=== PATIENT | male | born 1995 | race Caucasian/White ===

== ENCOUNTER 2016-07-28 13:09 | Emergency (ER) | payer BC ==
[~2016-07-28 13:09] MED LIST: ABILIFY5 MG PO; CYCLOBENZAPRINE10 MG PO; HYDROXYZINE PAM25 MG PO; OXYCODONE/ACETA1 TA1 PO; [UNRECOGNIZED DRUG - OTHER] IV
--- NOTE | 2016-07-28 14:05 | ED CLINICAL REPORT ---
Clinical Report - Physicians/Mid Levels [facility] [address] [place] [address] 07/28/2016 13:12 [id number] Time Seen: 13:24 Jul 28 2016. Arrived- By private vehicle. Historian- patient. HISTORY OF PRESENT ILLNESS Chief Complaint: Injury to left forearm. The injury happened just prior to arrival. The patient sustained a direct blow and crush injury. Occurred at home. Patient is experiencing mild pain. ( 21-year-old male, while snowboarding last night, and another snowboarder went into into his left forearm. He did not fall consequently to the incident, no injury to the head or neck. I used last night. Prior fracture to his distal wrist. He reports some swelling and abrasion to the area. Patient is left-hand dominant.). REVIEW OF SYSTEMS All systems otherwise negative, except as recorded above. PAST HISTORY The patient's dominant hand is the left. SOCIAL HISTORY Smoker- current status unknown. History of drug use: marijuana. No alcohol use. ADDITIONAL NOTES The nursing notes have been reviewed. PHYSICAL EXAM Vital Signs: 07/28/2016 13:28 BP: 121/61. HR: 70. RR: 18. O2 saturation: 100%. Temp: 98.5 F. Pain level now: 6/10. Appearance: Alert. No acute distress. Head: Head atraumatic. ENT: Ears normal. Nose normal. No injury to the nose. No tonsillar exudate. Neck: Normal inspection. Neck supple. CVS: Normal heart rate and rhythm. Heart sounds normal. Respiratory: No respiratory distress. Chest nontender. No decreased air movement. Skin: Skin warm. Normal skin color. (lateral left forearm abrasion). Extremities: Upper extremity soft tissue tenderness present. No signs of infection present in the upper extremities. Left elbow. No tenderness or swelling. No limitation in ROM. Left forearm. (radial abrasion/ swelling/ tendernss). Left wrist. Neurovascular intact distally. No tenderness or laceration. No limitation in ROM. Neuro, Vascular and Tendons: Vascular status intact. No sensory deficit. Motor intact. Neuro: Oriented X 3. LABS, X-RAYS, AND EKG Lt Forearm X-ray: (neg for any acute fx IMPRESSION: 1. Normal left forearm. Electronically Final signed by:John Toledo MD 07/28/2016 2:42:47 PM). The X-rays were independently viewed by me. PROGRESS AND PROCEDURES PROCEDURES (adam wrap). Course of Care: no elbow/ wrist pain. Full rom. No direct fall/ trauma. NO underyling signs of infectious process. Small abrasion noted with lateral side. Full rom at elbow/ wrist. Patient is with no fx on xr. Stable. No other injury and no fall. Patient is stable. Symptoms better. Patient/family counseled. Disposition: Discharged. CLINICAL IMPRESSION Contusion to the left forearm. INSTRUCTIONS Apply ice. Elevate affected areas above chest level. Protect wound and keep wound area clean. Apply bacitracin twice daily. OTC Medications: Acetaminophen (available over the counter): take according to label instructions. Motrin (available over the counter): take according to label instructions. Follow-up: Follow up with your doctor in three days. (Electronically signed by Janice Ortiz P.A.-C 07/28/2016 15:04)
--- NOTE | 2016-07-28 14:05 | ED ORDER SUMMARY ---
..... Patient: ADDIE ANDREWS OrderSheet [facility] VisitID: [id number] [place] [address] 21y, M Registration Date/Time: 07/28/2016 ORDER SHEET Weight: 64.8 kg (measured) Allergies: No Known Drug Allergy GENERAL ORDERS: Forearm Left Urgent (13:35 07/28/2016 Surya Sanchez) ([facility] 13:35 [facility]) Ryan Wrap (LEFT FOREARM) (14:07 07/28/2016 Surya Sanchez) MEDICATION ORDERS: IV FLUIDS: ORDER SHEET NOTES: [Electronically signed by Janice Ortiz P.A.-C (15:04 07/28/2016)] [Electronically signed by Mary Ball R.N. (10:28 07/30/2016)] [Electronically locked/signed by Mary Ball R.N. (10:07/30/2016)]
--- NOTE | 2016-07-28 14:05 | ED NURSING NOTES ---
Clinical Report - Nurses [facility] [place] [address] 07/28/2016 13:12 Patient: ADDIE ANDREWS TRIAGE Triage time 13:22. Acuity: LEVEL 5. Chief Complaint: INJURY TO LEFT ELBOW. INJURY TO THE LEFT FOREARM. Alert. --13:26 Faith Moore R.N. 13:28 07/28/16. BP: 121/61. HR: 70. RR: 18. O2 saturation: 100%. Temp: 98.5 F. Pain level now: 12/14. --13:30 Faith Moore R.N. Weight: 64.8 kg measured. Height/Length: 69 inches Per Patient. BMI: 21.1. Growth Chart Percentile: Weight: 29%. Height/Length: 40.9%. --13:30 Faith Moore R.N. Medications Cerdelga Oral. --13:41 Faith Moore R.N. The following entry was struck by Faith Moore R.N., 13:41 (07/28/16) Reason - other. <<STRICKEN ENTRY-- V-priv. --13:26 Faith Moore R.N. --END STRIKE>>. Allergies No Known Drug Allergy. --13:26 Faith Moore R.N. History Arrived by private vehicle. Historian: patient. Accompanied by mother. Primary physician (none). ( Pt was snowboarding, another snowboarder ran over pt's left arm). This occurred last night. --13:26 Faith Moore R.N. 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 PAST MEDICAL HX: Immunizations: up-to-date. SOCIAL HX: Light tobacco smoker (cigarette)- less than 1/2 a pack per day. History of drug use: marijuana. No alcohol use. --13:28 Faith Moore R.N. PROBLEMS: Lower Extremity Pain. Tibia Fracture. Concussion. Contusion. Platelet disorder. Fractured Metacarpal. Sprain. Gaucher Disease. Fall. Clavicle Fracture. --13:25 Faith Moore R.N. ADDITIONAL SURGERIES: Hernia Repair. Umbilical Hernia Repair. --13: Faith Moore R.N. Interventions ID band on patient. To room. --13: Faith Moore R.N. PHYSICAL ASSESSMENT 13:07/28/16. EXTREMITIES: Left forearm: tenderness and superficial abrasion. --13: Faith Moore R.N. NURSING PROGRESS NOTES 13:07/28/16. Patient identifiers checked. Call light placed in reach. Bed placed in lowest position. Brakes of bed on. Patient ready for evaluation- chart flagged. --13: Faith Moore R.N. 14:07/28/16. Applied dressing consisting of gauze, following the application of antibiotic ointment (bacitracin). Secured with tape and adam bandage. --14: Faith Moore R.N. DISPOSITION / DISCHARGE Departure time: 1406. Condition at departure: unchanged. No learning barriers present. Discharge instructions provided and reviewed with the patient and family. Reviewed referral to family practice for followup. Patient and family verbalized understanding. Written instructions provided. The patient was discharged home and accompanied by family. He left the Emergency Department ambulatory and via private vehicle. --14:10 Faith Moore R.N. 14:09 07/28/16. HR: 70. RR: 18. Pain level now: 09/13. --14:10 Faith Moore R.N. Locked/Released at 07/30/2016 10:28 by Mary Ball R.N.
--- NOTE | 2016-07-28 14:05 | ED CLINICAL REPORT ---
Clinical Report - Physicians/Mid Levels [facility] [address] [place] [address] 07/28/2016 13:12 [id number] Time Seen: 13:24 Jul 28 2016. Arrived- By private vehicle. Historian- patient. HISTORY OF PRESENT ILLNESS Chief Complaint: Injury to left forearm. The injury happened just prior to arrival. The patient sustained a direct blow and crush injury. Occurred at home. Patient is experiencing mild pain. ( 21-year-old male, while snowboarding last night, and another snowboarder went into into his left forearm. He did not fall consequently to the incident, no injury to the head or neck. I used last night. Prior fracture to his distal wrist. He reports some swelling and abrasion to the area. Patient is left-hand dominant.). REVIEW OF SYSTEMS All systems otherwise negative, except as recorded above. PAST HISTORY The patient's dominant hand is the left. SOCIAL HISTORY Smoker- current status unknown. History of drug use: marijuana. No alcohol use. ADDITIONAL NOTES The nursing notes have been reviewed. PHYSICAL EXAM Vital Signs: 07/28/2016 13:28 BP: 121/61. HR: 70. RR: 18. O2 saturation: 100%. Temp: 98.5 F. Pain level now: 6/10. Appearance: Alert. No acute distress. Head: Head atraumatic. ENT: Ears normal. Nose normal. No injury to the nose. No tonsillar exudate. Neck: Normal inspection. Neck supple. CVS: Normal heart rate and rhythm. Heart sounds normal. Respiratory: No respiratory distress. Chest nontender. No decreased air movement. Skin: Skin warm. Normal skin color. (lateral left forearm abrasion). Extremities: Upper extremity soft tissue tenderness present. No signs of infection present in the upper extremities. Left elbow. No tenderness or swelling. No limitation in ROM. Left forearm. (radial abrasion/ swelling/ tendernss). Left wrist. Neurovascular intact distally. No tenderness or laceration. No limitation in ROM. Neuro, Vascular and Tendons: Vascular status intact. No sensory deficit. Motor intact. Neuro: Oriented X 3. LABS, X-RAYS, AND EKG Lt Forearm X-ray: (neg for any acute fx IMPRESSION: 1. Normal left forearm. Electronically Final signed by:John Toledo MD 07/28/2016 2:42:47 PM). The X-rays were independently viewed by me. PROGRESS AND PROCEDURES PROCEDURES (adam wrap). Course of Care: no elbow/ wrist pain. Full rom. No direct fall/ trauma. NO underyling signs of infectious process. Small abrasion noted with lateral side. Full rom at elbow/ wrist. Patient is with no fx on xr. Stable. No other injury and no fall. Patient is stable. Symptoms better. Patient/family counseled. Disposition: Discharged. CLINICAL IMPRESSION Contusion to the left forearm. INSTRUCTIONS Apply ice. Elevate affected areas above chest level. Protect wound and keep wound area clean. Apply bacitracin twice daily. OTC Medications: Acetaminophen (available over the counter): take according to label instructions. Motrin (available over the counter): take according to label instructions. Follow-up: Follow up with your doctor in three days. (Electronically signed by Janice Ortiz P.A.-C 07/28/2016 15:04)
--- NOTE | 2016-07-28 14:05 | ED ORDER SUMMARY ---
..... Patient: ADDIE ANDREWS OrderSheet [facility] VisitID: [id number] [place] [address] 21y, M Registration Date/Time: 07/28/2016 ORDER SHEET Weight: 64.8 kg (measured) Allergies: No Known Drug Allergy GENERAL ORDERS: Forearm Left Urgent (13:35 07/28/2016 Surya Sanchez) ([facility] 13:35 [facility]) Ryan Wrap (LEFT FOREARM) (14:07 07/28/2016 Surya Sanchez) MEDICATION ORDERS: IV FLUIDS: ORDER SHEET NOTES: [Electronically signed by Janice Ortiz P.A.-C (15:04 07/28/2016)] [Electronically signed by Mary Ball R.N. (10:28 07/30/2016)] [Electronically locked/signed by Mary Ball R.N. (10:07/30/2016)]
--- NOTE | 2016-07-28 14:05 | ED NURSING NOTES ---
Clinical Report - Nurses [facility] [place] [address] 07/28/2016 13:12 Patient: ADDIE ANDREWS TRIAGE Triage time 13:22. Acuity: LEVEL 5. Chief Complaint: INJURY TO LEFT ELBOW. INJURY TO THE LEFT FOREARM. Alert. --13:26 Faith Moore R.N. 13:28 07/28/16. BP: 121/61. HR: 70. RR: 18. O2 saturation: 100%. Temp: 98.5 F. Pain level now: 12/14. --13:30 Faith Moore R.N. Weight: 64.8 kg measured. Height/Length: 69 inches Per Patient. BMI: 21.1. Growth Chart Percentile: Weight: 29%. Height/Length: 40.9%. --13:30 Faith Moore R.N. Medications Cerdelga Oral. --13:41 Faith Moore R.N. The following entry was struck by Faith Moore R.N., 13:41 (07/28/16) Reason - other. <<STRICKEN ENTRY-- V-priv. --13:26 Faith Moore R.N. --END STRIKE>>. Allergies No Known Drug Allergy. --13:26 Faith Moore R.N. History Arrived by private vehicle. Historian: patient. Accompanied by mother. Primary physician (none). ( Pt was snowboarding, another snowboarder ran over pt's left arm). This occurred last night. --13:26 Faith Moore R.N. 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 PAST MEDICAL HX: Immunizations: up-to-date. SOCIAL HX: Light tobacco smoker (cigarette)- less than 1/2 a pack per day. History of drug use: marijuana. No alcohol use. --13:28 Faith Moore R.N. PROBLEMS: Lower Extremity Pain. Tibia Fracture. Concussion. Contusion. Platelet disorder. Fractured Metacarpal. Sprain. Gaucher Disease. Fall. Clavicle Fracture. --13:25 Faith Moore R.N. ADDITIONAL SURGERIES: Hernia Repair. Umbilical Hernia Repair. --13: Faith Moore R.N. Interventions ID band on patient. To room. --13: Faith Moore R.N. PHYSICAL ASSESSMENT 13:07/28/16. EXTREMITIES: Left forearm: tenderness and superficial abrasion. --13: Faith Moore R.N. NURSING PROGRESS NOTES 13:07/28/16. Patient identifiers checked. Call light placed in reach. Bed placed in lowest position. Brakes of bed on. Patient ready for evaluation- chart flagged. --13: Faith Moore R.N. 14:07/28/16. Applied dressing consisting of gauze, following the application of antibiotic ointment (bacitracin). Secured with tape and adam bandage. --14: Faith Moore R.N. DISPOSITION / DISCHARGE Departure time: 1406. Condition at departure: unchanged. No learning barriers present. Discharge instructions provided and reviewed with the patient and family. Reviewed referral to family practice for followup. Patient and family verbalized understanding. Written instructions provided. The patient was discharged home and accompanied by family. He left the Emergency Department ambulatory and via private vehicle. --14:10 Faith Moore R.N. 14:09 07/28/16. HR: 70. RR: 18. Pain level now: 09/13. --14:10 Faith Moore R.N. Locked/Released at 07/30/2016 10:28 by Mary Ball R.N.
--- NOTE | 2016-07-28 14:43 | DIAGNOSTIC IMAGING REPORT ---
PROCEDURE: XR FOREARM - LEFT INDICATION: TRAUMA/INJURY TECHNIQUE: AP and lateral views. COMPARISON: None. FINDINGS: Osseous structures are normal. IMPRESSION: 1. Normal left forearm.
--- NOTE | 2016-07-28 14:43 | DIAGNOSTIC IMAGING REPORT ---
PROCEDURE: XR FOREARM - LEFT INDICATION: TRAUMA/INJURY TECHNIQUE: AP and lateral views. COMPARISON: None. FINDINGS: Osseous structures are normal. IMPRESSION: 1. Normal left forearm.
--- NOTE | 2016-07-30 10:28 | ED DISCHARGE INSTRUCTIONS ---
Patient: ADDIE ANDREWS General Instructions [facility] VisitID: [id number] [place] [address] 21y, M Registration Date/Time: 07/28/2016 Contusion to the left forearm. INSTRUCTIONS Apply ice. Elevate affected areas above chest level. Protect wound and keep wound area clean. Apply bacitracin twice daily. OTC Medications: Acetaminophen (available over the counter): take according to label instructions. Motrin (available over the counter): take according to label instructions. Follow-up: Follow up with your doctor in three days. ADDITIONAL INFORMATION Contusion,Soft Tissue You have a CONTUSION, which is a bruise with swelling and some bleeding under the skin. There are no broken bones. This injury takes a few days to a few weeks to heal. Home Care: 1) Keep the injured part elevated to reduce pain and swelling. This is especially important during the first 48 hours. 2) Make an ice pack (ice cubes in a plastic bag, wrapped in a towel) and apply for 20 minutes every 1-2 hours the first day. Continue this 3-4 times a day until the pain and swelling goes away. 3) You may use acetaminophen (Tylenol) or ibuprofen (Motrin, Advil) to control pain, unless another pain medicine was prescribed. [ NOTE : If you have chronic liver or kidney disease or ever had a stomach ulcer or GI bleeding, talk with your doctor before using these medicines.] Follow Up with your doctor or this facility if you are not improving within the next THREE days. [NOTE: If X-rays were taken, they will be reviewed by a radiologist. You will be notified of any new findings that may affect your care.] Get Prompt Medical Attention if any of the following occur: -- Pain or swelling increases -- Injured arm or leg becomes cold, blue, numb or tingly -- Redness, warmth or drainage from the skin Contusion:Upper Extremity You have a contusion of your upper extremity (arm, wrist, hand or fingers). This causes local pain, swelling and sometimes bruising. There are no broken bones. This injury takes a few days to a few weeks to heal. A sling may be provided for comfort and arm support. Home Care: 1) Keep your arm elevated to reduce pain and swelling. This is very important during the first 48 hours. 2) Apply an ice pack (ice cubes in a plastic bag, wrapped in a towel) over the injured area for 20 minutes every 1-2 hours the first day for pain relief. Continue this 3-4 times a day until the pain and swelling goes away. 3) You may use acetaminophen (Tylenol) or ibuprofen (Motrin, Advil) to control pain, unless another pain medicine was prescribed. [ NOTE : If you have chronic liver or kidney disease or ever had a stomach ulcer or GI bleeding, talk with your doctor before using these medicines.] 4) If a sling was provided, you may remove it to shower or bathe. Do not wear it for more than one week or it may cause joint stiffness. Follow Up with your doctor or this facility if you are not starting to improve within the next THREE days. [NOTE: If X-rays were taken, they will be reviewed by a radiologist. You will be notified of any new findings that may affect your care.] Get Prompt Medical Attention if any of the following occur: -- Pain or swelling increases -- Redness, warmth or drainage -- Hand or fingers becomes cold, blue, numb or tingly You have been given the following additional information: Contusion, Soft Tissue Contusion, Upper Extremity (Electronically signed by Janice Ortiz P.A.-C 07/28/2016 15:04)
--- NOTE | 2016-07-30 10:28 | ED MED RECONCILIATION SUMMARY ---
Patient: ADDIE ANDREWS Medication Reconciliation Report [facility] VisitID: [id number] [place] [address] 21y, M Registration Date/Time: 07/28/2016 Weight: 64.8 kg Height/Length: 69 in. BMI: 21.1 ALLERGIES: No Known Drug Allergy The patient's Home Medications are listed below: THE FOLLOWING MEDICATIONS NEED TO BE RECONCILED: Cerdelga Oral The source(s) of the original Home Medication information: Not obtained. The following Medications were given to the patient in the Emergency Department: None. The following Medications were prescribed to the patient: Acetaminophen (available over the counter): take according to label instructions. -- Janice Ortiz, P.A.-José Miguel Motrin (available over the counter): take according to label instructions. -- Janice Ortiz, P.A.-C
--- NOTE | 2016-07-30 10:28 | ED MAR SUMMARY ---
..... Medication Administration Record [facility] [address] [place], [place] [id number] Patient: ADDIE ANDREWS Visit ID: [id number] 21y, M Weight: 64.8 kg Height/Length: 69 in BMI: 21.1 ALLERGIES: No Known Drug Allergy
--- NOTE | 2016-07-30 10:28 | ED MED RECONCILIATION SUMMARY ---
Patient: ADDIE ANDREWS Medication Reconciliation Report [facility] VisitID: [id number] [place] [address] 21y, M Registration Date/Time: 07/28/2016 Weight: 64.8 kg Height/Length: 69 in. BMI: 21.1 ALLERGIES: No Known Drug Allergy The patient's Home Medications are listed below: THE FOLLOWING MEDICATIONS NEED TO BE RECONCILED: Cerdelga Oral The source(s) of the original Home Medication information: Not obtained. The following Medications were given to the patient in the Emergency Department: None. The following Medications were prescribed to the patient: Acetaminophen (available over the counter): take according to label instructions. -- Janice Ortiz, P.A.-José Miguel Motrin (available over the counter): take according to label instructions. -- Janice Ortiz, P.A.-C
--- NOTE | 2016-07-30 10:28 | ED MAR SUMMARY ---
..... Medication Administration Record [facility] [address], [place] [id number] Patient: ADDIE ANDREWS Visit ID: [id number] 21y, M Weight: 64.8 kg Height/Length: 69 in BMI: 21.1 ALLERGIES: No Known Drug Allergy
== END 2016-07-28 14:05 | disposition home or self-care (01) ==
LOC: ED SRH 13:09
DX: S50.12XA Contusion of left forearm, initial encounter (principal); W50.0XXA Accidental hit or strike by another person, initial encounter; Y93.23 Activity, snow (alpine) (downhill) skiing, snowboarding, sledding, tobogganing and snow tubing; Y92.009 Unspecified place in unspecified non-institutional (private) residence as the place of occurrence of the external cause; Y99.9 Unspecified external cause status; F17.200 Nicotine dependence, unspecified, uncomplicated